=== PATIENT | male | born 1965 | race Caucasian/White ===

== ENCOUNTER → 2021-01-13 17:44 | Outpatient (CLI) | payer OTHER, SELFPAY ==
--- NOTE | 2021-01-13 17:50 | CT_ITS ---
INDICATION: LLQ PAIN EXAMINATION: CT Abdomen And Pelvis W/ Contrast Injection TECHNIQUE: Helically acquired images were obtained of the abdomen and pelvis after IV contrast. A radiation dose optimization technique was used for this scan. IV Contrast dosage and agent: 100 cc [id number] Oral contrast: None. COMPARISON: None. FINDINGS: Visualized lung bases: Unremarkable Liver: Unremarkable Gallbladder: Unremarkable Spleen: Unremarkable Pancreas: Unremarkable Adrenal Glands: Unremarkable Kidneys: Unremarkable GI Tract: Scattered diverticula throughout the colon without evidence of inflammation. The appendix is not visualized. Vasculature: Unremarkable Lymphadenopathy: None Peritoneum: No ascites. Bladder: Mild circumferential wall thickening. Reproductive organs: Unremarkable Bones/Soft tissues: No suspicious osseous or soft tissue lesions CT/Abdomen/Pelvis WITH Contrast IMPRESSION: Mild circumferential wall thickening of the bladder. Correlate with urinalysis for cystitis. Diverticulosis. Electronically Signed: Jeanmarie Garcia MD at 18:49 EDT Tel , Service support ,
== END ==
PROVIDERS: PCP Family Medicine; Referring Provider Internal Medicine; Visit Provider Internal Medicine
DX: R10.32 Left lower quadrant pain (principal)
CPT/HCPCS: 74177; Q9967